=== PATIENT | female | born 1955 ===

== ENCOUNTER → 2017-05-12 | Day surgery (SDC) | payer OTHER ==
--- NOTE | 2017-05-11 00:38 | HHI.HP ---
HPI Chief Complaint Uterine prolapse, pelvic pain Date Seen: May 12, 2017 Travel History International Travel<30 Days: No Contact w/Intl Traveler<30Days: No Known Affected Area: No History of Present Illness HPI The patient is a 61 year old female with worsening pelvic pain due to uterine prolapse and cystocele. She has requested surgical treatment. Para: 3 : 4 Miscarriage: 0 : 1 History Past Medical History Narrative Medical HTN Hyperlipidemia GERD Obstetric History Obstetric History Four pregnancies, 3 vaginal deliveries, 1 Past Surgical History Narrative Surgical 1994 -- tubal ligation Family History Narrative Family History Father -- prostate cancer Sister -- Lupus Social History Alcohol Use: No Tobacco Use: Yes (smokes about 1/2 ppd; has smoked for about 10 years) Substance Abuse: No Allergies-Medications (Allergen,Severity, Reaction): Coded Allergies: No Known Allergies (Unverified , 05/11/17) Narrative Medication Metoprolol 25 mg PO QD Glucosamine Tramadol 50 mg prn Omeprazole 40 mg PO QD Review of Systems General / Constitutional: No: Fever, Weight Gain, Chills, Other Eyes: No: Diploplia, Blurred Vision, Visual changes, Pain, Photophobia HENT: No: Headaches, Vertigo, Lightheadedness Cardiovascular: No: Irregular Rhythm, Chest Pain or Discomfort, Palpitations, Tachycardia, Syncope, Varicosities, Edema, Cyanosis Respiratory: No: Cough, Short of Breath, Other Gastrointestinal: No: Nausea, Vomiting, Diarrhea Genitourinary: Pelvic Pain, Menorrhagia, No: Decreased Urinary Output, Oliguria Musculoskeletal: No: Limited ROM, Weakness, Cramping, Edema, Pain Skin: No Rash, No Itching, No Dryness, No Lumps, No Change in Pigmentation, No Change in Nails, No Alopecia, No Lesions Neurologic: No: Weakness, Dizziness, Syncope, Focal Abnormalities, Coordination Problem, Headache, Slurred Speech, Seizures Psychiatric: No: Depression, Suicidal Ideations, Homicidal Ideation Endocrine: No: Heat Intolerance, Cold Intolerance, Polydipsia, Polyuria, Other Physical Exam Narrative GENERAL: Well-nourished, well-developed patient. SKIN: Warm and dry. HEAD: Normocephalic and atraumatic. EYES: No scleral icterus. No injection or drainage. ENT: No nasal drainage noted. Mucous membranes pink. Airway patent. NECK: Supple, trachea midline. No JVD. CARDIOVASCULAR: Regular rate and rhythm without murmurs, gallops, or rubs. RESPIRATORY: Breath sounds equal bilaterally. No accessory muscle use. BREASTS: Bilateral exam showed no masses , no retractions, no nipple discharge. ABDOMEN/GI: Abdomen soft, non-tender, bowel sounds present, no rebound, no guarding GENITOURINARY: External Genitalia: intact and normal in appearance Uterus: prolapsed, midline cystocele, no adnexal masses EXTREMITIES: No cyanosis or edema. BACK: Nontender without obvious deformity. No CVA tenderness. NEUROLOGICAL: Awake and alert. Motor and sensory grossly within normal limits. Five out of 5 muscle strength in all muscle groups. Normal speech. Data Data Vital Signs Reviewed: Yes Assessment/Plan Problem List: (1) Incomplete uterovaginal prolapse (2) Midline cystocele (3) Pelvic and perineal pain Assessment and Plan 1. admit for laparoscopic assisted vaginal hysterectomy, bilateral salpingo- oophorectomy and McCalls culdoplasty 2. discussed the R/B/A of the procedure: bleeding, infection, damage to internal organs (bowel, bladder, nerves, ureters, vessels) as well damage to vaginal herr 3, discussed the R/B/A of leaving the ovaries in situ vs. surgical menopause; patient wishes to have ovaries removed 4. informed consent was obtained after patient's questions were answered; she verbalized understanding Kiara Holly MD May 11, 2017 00:38
[~2017-05-12] MED LIST: BUPIVACAINE/EPINEPHRINE 0.5% PF 30 ML VIAL ONE; ESTROGENS CONJUGATED VAG CREA 15 APPL/30 GM TUBE ONE; KETOROLAC TROMETHAMINE 30 MG/ML (IVP) VIAL IV PUSH ONE; LACTATED RINGER'S 1,000 ML BAG IV ONE; LACTATED RINGER'S 1000 ML INJ 1,000 ML ONE; METHYLENE BLUE 100 MG/10 ML VIAL ONE; MIDAZOLAM HCL 2 MG/2 ML VIAL ONE; MORPHINE SULFATE 4 MG/ML INJ ONE; ONDANSETRON HCL 4 MG/2 ML VIAL IV PUSH ONE; PROPOFOL 200 MG/20 ML AMP IV ONE; SODIUM CHLORIDE 0.9% 20 ML VIAL ONE; VASOPRESSIN INJ 20 UNITS/ML VIAL ONE; ceFAZolin 2 GM PREMIX 50 ML ONE; oxyCODONE/ACETAMINOPHEN 5 MG/325 MG TAB ONE
--- NOTE | 2017-05-12 07:36 | PD.OP ---
Operative Report Date of Surgery: May 12, 2017 Preoperative Diagnosis: (1) Incomplete uterovaginal prolapse (2) Pelvic prolapse (3) Pelvic and perineal pain Postoperative Diagnosis: (1) Incomplete uterovaginal prolapse (2) Pelvic prolapse (3) Pelvic and perineal pain Procedure: 1. laparoscopic assisted vaginal hysterectomy 2. bilateral salpingo-oophorectomy 3. culdoplasty Anesthesia: General Surgeon: Kiara Holly Power Marketer(s): Staff Operation and Findings: IVF: 1 liter LR + Methylene blue + IV antibiotic given prior to surgery UO: 100 ml EBL: 75 ml Findings: 1. normal abdomen 2. normal uterus, tubes, ovaries 3. uterine prolapse 4. pelvic prolapse Specimens: 1. cervix 2. tubes 3. ovaries Complications: none Condition: stable Disposition: PACU Descriptions of the procedure: I discussed the risks, benefits and alternatives of the procedure with the patient. Informed consent was obtained after questions were answered. She was then taken to the operating room with her IV running. She was placed in the supine position and was given general anesthesia without difficulties or complications. She was then placed in the dorsal lithotomy position and was prepped and draped in the usual sterile fashion. Attention was first turned to the patient's genital area. A bivalved speculum was introduced inside the patient's vagina. The anterior aspect of the cervix was grasped with a single tooth tenaculum for manipulation. The cervix was carefully dilated and a uterine manipulator was carefully introduced inside her uterus. The rest of the instruments were removed from the patient's vagina and a sterile blue towel was used to cover the perineum. The surgeon changed gloves and attention was then turned to the patient's abdomen. A vertical umbilical incision was made with the scalpel. A 10 mm trocar was introduced inside the patient's abdomen under direct visualization. A pneumo-peritoneum was created with CO2 gas. Next, three 5 mm trocars were introduced inside the patient's abdomen under direct visualization in the lower right, mid, and left abdomen. A survey of the patient's abdomen revealed normal anatomy. A survey of the patient's pelvis revealed the findings noted above. The round ligaments and infundibulopelvic ligaments were carefully and serially grasped, electrocauterized and cut with the Thunderbeat scalpel. Excellent hemostasis was noted. The tissues along the uterus on both sides were serially grasped, electrocauterized and transected with the Thunderbeat scalpel. The ureters were noted to be away from the surgical site. Methylene blue was given. The uterine vessels were skeletonized, electrocauterized and transected with the Thunderbeat scalpel. Good hemostasis was noted. Next, the bladder flap was created and the bladder was dissected off the lower uterine segment. Excellent hemostasis was noted. At this point, attention was again turned to the patient's perineal area. The uterine manipulator was removed. The Bovie was used to circumferentially cut the vaginal tissues at the cervico-vaginal junction after Pitressin had been injected. The anterior cul de sac was entered without difficulties. The posterior cul de sac was also entered without difficulties. A retractor was introduced inside the posterior cul de sac. A retractor was placed inside the anterior cul de sac. Curved Jeni clamps were used to clamp the cardinal ligaments. These were transected with Toro scissors and stitched with 0-Vicryl. Good hemostasis was noted. The rest of the tissues along the lower uterine segment were serially clamped, transected with Toro scissors and stitched with 0 -Vicryl. Good hemostasis was noted at each pedicle. The uterus was removed and sent to pathology. A sponge stick was used to check each pedicle for hemostasis. All the instruments were removed from the patient's pelvis. A Vela culdoplasty was carefully done. Then the vaginal peritoneum was reapproximated with a purse string stitch of 0-Vicryl. The pedicles were reapproximated and secured in order to get the vaginal cuff higher in the pelvis. The vaginal tissues were reapproximated with running, locked stitches of 0-Vicryl in a vertical fashion. Premarin cream was placed in the patient's vagina. The surgeon changed gloves and attention was turned again to the patient's abdomen. The pneumoperitoneum was recreated. The surgical sites were noted to be hemostatic. Copious irrigation was done. The ureters were identified and found to be away from the surgical sites. There was no evidence of injury or blockage of the ureters or bladder. Interseed was placed over the surgical site. All of the instruments were removed from the patient's abdomen. The ports were also removed under direct visualization. Excellent hemostasis was noted. The CO2 gas was carefully expressed out of the patient's abdomen. The fascia of the umbilical incision was re-approximated with a figure stitch of O-Vicryl. The skin incisions were injected with 0.5 % Marcaine and were reapproximated with subcutaneous stitches of 4-0 Vicryl. Mastisol and steri strips were placed over the incisions. The patient tolerated the procedure well. She was successfully extubated and transferred to PACU in stable condition. Note: I discussed surgical procedures and surgical findings with patient's mother. Her questions were answered. She verbalized understanding. Kiara Holly MD May 12, 2017 07:36
== END | disposition home or self-care (01) ==
LOC: ESDC 09:03
PROVIDERS: ATTEND Obstetrics & Gynecology
DX: N81.2 Incomplete uterovaginal prolapse (principal); R10.2 Pelvic and perineal pain
CPT/HCPCS: 00840; 57268; 58552; 88307; C1765; J0690; J1885; J2250; J2270; J2405; J3010; J7120; 88305